=== PATIENT | female | born 1985 | race American Indian/Alaskan Native ===

== ENCOUNTER 2016-11-19 05:22 | Emergency (ER) | payer MEDICAID ==
--- NOTE | 2016-11-19 06:30 | C.PDOC ---
History Of Present Illness 31 year old female who presents to the ER with a complaint of exacerbation of her chronic back pain for the past 3 days. Denies recent injury/trauma, weakness , numbness, dysuria, incontinence, or hematuria. Pain is worse with movements Time Seen by Provider: 11/19/16 05:47 Chief Complaint (Nursing): Back Pain History Per: Patient History/Exam Limitations: no limitations Onset/Duration Of Symptoms: Days Current Symptoms Are (Timing): Still Present Quality Of Discomfort: Unable To Describe Previous Symptoms: Back Pain, Chronic Pain Associated Symptoms: None Recent travel outside of the [place]: No Past Medical History Reviewed: Historical Data, Nursing Documentation, Vital Signs Vital Signs: Last Vital Signs Temp 98.0 F 11/19/16 05:29 Pulse 86 11/19/16 05:29 Resp 16 11/19/16 05:29 BP 103/68 11/19/16 05:29 Pulse Ox 99 11/19/16 06:32 - Medical History PMH: No Chronic Diseases Surgical History: No Surg Hx Family History: States: Unknown Family Hx - Social History Hx Alcohol Use: No Hx Substance Use: No (DENIED) - Immunization History Hx Tetanus Toxoid Vaccination: No Hx Influenza Vaccination: No Hx Pneumococcal Vaccination: No Review Of Systems Genitourinary: Negative for: Dysuria, Incontinence, Hematuria Musculoskeletal: Positive for: Back Pain Neurological: Negative for: Weakness, Numbness Physical Exam - Physical Exam Appears: Non-toxic Skin: Normal Color, Warm, Dry Head: Atraumatic, Normacephalic Gastrointestinal/Abdominal: Soft, No Tenderness Back: No Vertebral Tenderness, Paraspinal Tenderness (Lumbar) Extremity: Normal ROM (x4), No Tenderness, No Deformity Neurological/Psych: Oriented x3, Normal Speech, Normal Cognition, Normal Motor, Normal Sensation Gait: Steady ED Course And Treatment O2 Sat by Pulse Oximetry: 99 (Room air) Pulse Ox Interpretation: Normal Progress Note: Valium and toradol administered. Patient is resting comfortably, is no longer having back pain, no fever, no bony tenderness, no numbness, no weakness, or abdominal pain. Patient is ambulatory in the emergency department with no signs of discomfort. Patient was advised to follow up with their PMD in 1-2 days. Disposition Counseled Patient/Family Regarding: Diagnosis, Need For Followup, Rx Given - Disposition Referrals: [facility] [Outside] Disposition: HOME/ ROUTINE Disposition Time: 06:38 Condition: STABLE Additional Instructions: Take meds as prescribed Follow up with your doctor or in clinic Return to ER if worse Prescriptions: Cyclobenzaprine [Cyclobenzaprine HCl] 10 mg PO HS #10 tab Ibuprofen [Motrin] 600 mg PO Q6H #30 tab Instructions: Back Pain (ED) Forms: [facility] (Kazakh) - Clinical Impression Clinical Impression: Low back pain - Scribe Statement The provider has reviewed the documentation as recorded by the Scribernesto Aparicio All medical record entries made by the Rosanaibernesto were at my direction and personally dictated by me. I have reviewed the chart and agree that the record accurately reflects my personal performance of the history, physical exam, medical decision making, and the department course for this patient. I have also personally directed, reviewed, and agree with the discharge instructions and disposition.
[2016-11-19 06:53] VITALS: BP 122/79; PULSE 78; RESP 18; TEMP 97.6; O2SAT 100
== END 2016-11-19 06:56 | disposition home or self-care (01) ==
LOC: C.ER 05:22
DX: M54.5 Low back pain (principal)
CPT/HCPCS: 96372; 99284; J1885

== ENCOUNTER 2017-01-17 12:06 | Emergency (ER) | payer MEDICAID ==
[2017-01-17 12:15] VITALS: BMI 34.0
[2017-01-17 13:28] LABS: RBC URINE 2 /hpf (0-3); URINE BACTERIA RARE (<OCC); URINE BILIRUBIN NEGATIVE (NEGATIVE); URINE BLOOD NEGATIVE (NEGATIVE); URINE COLOR Yellow (YELLOW); URINE GLUCOSE (UA) NORMAL (Normal); URINE KETONE NEGATIVE (NEGATIVE); URINE LEUKOCYTE ESTERASE NEG Leu/uL (Negative); URINE PROTEIN NEGATIVE (NEGATIVE); URINE UROBILINOGEN NORMAL mg/dL (0.2-1.0); WBC URINE 2 /hpf (0-5)
--- NOTE | 2017-01-17 13:49 | RAD ---
PROCEDURE: Radiographs of the Lumbar Spine. HISTORY: back pain COMPARISON: None available. FINDINGS: BONES: Alignment appears satisfactory. No listhesis. No acute displaced fracture identified. DISC SPACES: Unremarkable. OTHER FINDINGS: None. IMPRESSION: No acute displaced fracture or subluxation identified.
[2017-01-17] MEDS ORDERED: Lidocaine 5% Patch TD STA (14:02)
[2017-01-17] MEDS ORDERED: Lidocaine 5% Patch TD ONE (14:23)
--- NOTE | 2017-01-17 14:42 | C.PDOC ---
History Of Present Illness 31 year old female presents to the ER with a complaint of lower back pain for the past 2 months that has worsened over the last few days. Patient states she has been lifting heavy objects at work and has been doing a lot of bending down. Denies recent trauma/injury, weakness, numbness, dysuria, or hematuria. Chief Complaint (Nursing): Back Pain History Per: Patient History/Exam Limitations: no limitations Onset/Duration Of Symptoms: Days Current Symptoms Are (Timing): Still Present Quality Of Discomfort: Unable To Describe Previous Symptoms: None Associated Symptoms: None Recent travel outside of the [place]: No Past Medical History Reviewed: Historical Data, Nursing Documentation, Vital Signs Vital Signs: Last Vital Signs Temp 97.8 F 01/17/17 14:53 Pulse 55 L 01/17/17 14:53 Resp 16 01/17/17 14:53 BP 107/77 01/17/17 14:53 Pulse Ox 99 01/17/17 14:53 - Medical History PMH: No Chronic Diseases Surgical History: No Surg Hx Family History: States: Unknown Family Hx - Social History Hx Alcohol Use: No Hx Substance Use: No (DENIED) - Immunization History Hx Tetanus Toxoid Vaccination: No Hx Influenza Vaccination: No Hx Pneumococcal Vaccination: No Review Of Systems Genitourinary: Negative for: Dysuria, Incontinence, Hematuria Musculoskeletal: Positive for: Back Pain Neurological: Negative for: Weakness, Numbness Physical Exam - Physical Exam Appears: Non-toxic, No Acute Distress Skin: Normal Color, Warm, Dry Head: Atraumatic, Normacephalic Back: Vertebral Tenderness (LS), Paraspinal Tenderness (LS) Extremity: Normal ROM (x4) Neurological/Psych: Oriented x3, Normal Speech, Normal Cognition, Normal Motor, Normal Sensation ED Course And Treatment O2 Sat by Pulse Oximetry: 98 (Room air) Pulse Ox Interpretation: Normal - Other Rad LS Spine x-ray X-Ray: Viewed By Me, Read By Radiologist Interpretation: PROCEDURE: Radiographs of the Lumbar Spine. HISTORY: back pain. COMPARISON: None available. FINDINGS: BONES: Alignment appears satisfactory. No listhesis. No acute displaced fracture identified. DISC SPACES : Unremarkable. OTHER FINDINGS: None. IMPRESSION: No acute displaced fracture or subluxation identified. Progress Note: LS spine x-ray ordered, no abnormalities found. Patient treated with toradol and lidoderm patch and discharged with instructions to follow up with PMD. Disposition - Disposition Disposition: HOME/ ROUTINE Disposition Time: 14:39 Condition: STABLE Additional Instructions: Follow up with PMD within 1-2 days. Return to ED if feel worse. Prescriptions: Cyclobenzaprine [Cyclobenzaprine HCl] 10 mg PO TID #15 tab Ibuprofen [Motrin Tab] 600 mg PO Q8 #30 tab traMADol/Acetaminophen [Ultracet 325 MG-37.5 MG] 1 tab PO Q6 PRN #30 tab PRN Reason: Pain Instructions: Acute Low Back Pain (ED) Forms: [facility] (Croatian), Work Excuse - Clinical Impression Clinical Impression: Low back pain - Scribe Statement The provider has reviewed the documentation as recorded by the Scribernesto Aparicio All medical record entries made by the Rosanaibernesto were at my direction and personally dictated by me. I have reviewed the chart and agree that the record accurately reflects my personal performance of the history, physical exam, medical decision making, and the department course for this patient. I have also personally directed, reviewed, and agree with the discharge instructions and disposition.
[2017-01-17 14:54] VITALS: BP 107/77; PULSE 55; RESP 16; TEMP 97.8
[2017-01-17 18:35] VITALS: O2SAT 98
== END 2017-01-17 14:54 | disposition home or self-care (01) ==
LOC: C.ER 12:06
DX: M54.5 Low back pain (principal)
CPT/HCPCS: 72100; 81001; 84703; 96372; 99284; J1885

== ENCOUNTER 2017-05-06 23:02 | Emergency (ER) | payer MEDICAID ==
[2017-05-06 23:02] VITALS: BMI 34.0
[2017-05-06 23:13] VITALS: BP 133/83; O2SAT 100
--- NOTE | 2017-05-06 23:23 | C.PDOC ---
History Of Present Illness 31 y/o female c/o right elbow pain; pt was standing on nightstand to hang something on ceiling, fell backwards and banged right elbow on night stand as she fell. , occurred 6 pm. pt did not hit head. last tdap unk. Time Seen by Provider: 05/06/17 23:16 Chief Complaint (Nursing): Upper Extremity Problem/Injury Past Medical History Vital Signs: Last Vital Signs Temp 97.9 F 05/06/17 23:08 Pulse 68 05/06/17 23:08 Resp 20 05/06/17 23:08 BP 133/83 05/06/17 23:08 Pulse Ox 100 05/06/17 23:23 Family History: States: Unknown Family Hx - Social History Hx Alcohol Use: Yes Hx Substance Use: No (DENIED) - Immunization History Hx Tetanus Toxoid Vaccination: No Hx Influenza Vaccination: No Hx Pneumococcal Vaccination: No ED Course And Treatment O2 Sat by Pulse Oximetry: 100 Medical Decision Making Medical Decision Making: xray of elbow and forearm reviewed by me, no fx noted. pt withf/u ortho contusion to elbow and forearms with abrasions. d/c home with sling, nsaids. Disposition Counseled Patient/Family Regarding: Studies Performed, Diagnosis, Need For Followup, Rx Given - Disposition Referrals: Rafat Kumar MD [Primary Care Provider] - Master Fowler III, MD [Staff Provider] - Disposition: HOME/ ROUTINE Disposition Time: 01:03 Condition: GOOD Additional Instructions: Takei buprofen for pain. Cold compresses three times a day. Bacitracin to scrapes on elbow and arm. Wear sling for comfort. Follow up with orthopedist. Forms: [facility] (Slovak), General Discharge Instructions - Clinical Impression Clinical Impression: Contusion of elbow, right, Abrasion of elbow, right
[2017-05-06] MEDS ORDERED: Tdap Vaccine 0.5 ml Vial (10-64 yrs) IM ONE ×2 (23:28→23:35)
[2017-05-06] MEDS ORDERED: Bacitracin 500 Units/gm Oint Foilpak UD TOP ONE (23:28)
[2017-05-06] MEDS ORDERED: Bacitracin 500 Units/gm Oint Foilpak UD ONE (23:30)
[2017-05-07 01:34] VITALS: PULSE 75; RESP 16; TEMP 98
--- NOTE | 2017-05-07 08:45 | RAD ---
PROCEDURE: Radiographs of the right elbow. HISTORY: posterior olecranon tender s/p fall COMPARISON: No prior. FINDINGS: BONES: Normal. No fracture. JOINTS: Normal. No osteoarthritis. SOFT TISSUES: Normal. JOINT EFFUSION: None. OTHER FINDINGS: None. IMPRESSION: Unremarkable radiographs of the right elbow.
--- NOTE | 2017-05-07 08:46 | RAD ---
PROCEDURE: Radiographs of the Right Forearm HISTORY: mid forearm pain s/p fall COMPARISON: None available. TECHNIQUE: Frontal and lateral views obtained. FINDINGS: BONES: No fracture or destructive lesion. JOINT SPACES: Unremarkable. OTHER FINDINGS: None. IMPRESSION: Unremarkable radiographs of the right forearm.
== END 2017-05-07 01:33 | disposition home or self-care (01) ==
LOC: C.ER 23:02 → SUPCPDRO 23:02 → C.ER 05-07 01:33
DX: S50.01XA Contusion of right elbow, initial encounter (principal); S50.311A Abrasion of right elbow, initial encounter; W17.89XA Other fall from one level to another, initial encounter

== ENCOUNTER 2017-07-26 14:01 | Emergency (ER) | payer MEDICAID ==
[2017-07-26 14:02] VITALS: BMI 34.0
[2017-07-26 14:22] VITALS: BP 111/77; PULSE 76; RESP 16; TEMP 98.2; O2SAT 100
--- NOTE | 2017-07-26 14:56 | C.PDOC ---
History Of Present Illness 31 yo female come in for evaluation of Right 1st toe pain developed since yesterday after heavy box fell down on toe at work. Pt admits, mild pain over injured toe. Otherwise, denies obvious deformity, weakness, sensory or vascular deficits to Right foot. Ambulate to Ed for evaluation, not in any apparent distress. Time Seen by Provider: 07/26/17 14:22 Chief Complaint (Nursing): Lower Extremity Problem/Injury History Per: Patient Past Medical History Reviewed: Historical Data, Nursing Documentation, Vital Signs Vital Signs: Last Vital Signs Temp 98.2 F 07/26/17 14:17 Pulse 76 07/26/17 14:17 Resp 16 07/26/17 14:17 BP 111/77 07/26/17 14:17 Pulse Ox 100 07/26/17 14:17 - Medical History PMH: No Chronic Diseases Family History: States: Unknown Family Hx - Social History Hx Alcohol Use: Yes Hx Substance Use: No (DENIED) - Immunization History Hx Tetanus Toxoid Vaccination: No Hx Influenza Vaccination: No Hx Pneumococcal Vaccination: No Review Of Systems Except As Marked, All Systems Reviewed And Found Negative. Constitutional: Negative for: Fever, Chills Musculoskeletal: Positive for: Foot Pain Skin: Negative for: Lesions, Bruising Neurological: Negative for: Weakness, Numbness Physical Exam - Physical Exam Appears: Well, Non-toxic, No Acute Distress Skin: Normal Color, Warm, No Rash, No Ecchymosis Extremity: Normal ROM (Right foot, no neurovascular deficits), Tenderness (mild over Right 1st MTPJ, no deformity, no skin changes.), Capillary Refill (less than 2sec to Right foot), No Deformity, No Swelling Neurological/Psych: Oriented x3, Normal Speech, Normal Motor, Normal Sensation, Normal Reflexes ED Course And Treatment O2 Sat by Pulse Oximetry: 100 - Other Rad Right 1st toe X-Ray: Interpreted by Me Interpretation: (-) acute fx or dislocation Progress Note: On re-eval, pt is afebrile, hemodynamicaly stable. Non-toxic. Right foot: exam c/w mild tenderness over 1st MTPJ, no deformity, no skin hcanges. FAROM, no neurovascular deficits. Imaging review (-) acute fx. Shiva tape applied to Right 1st/2nd toes. Pt advised on course of ds. ref. to f/u with Podiatry in 2 days for re-eavl. return if any new changes. Disposition Counseled Patient/Family Regarding: Studies Performed, Diagnosis, Need For Followup, Rx Given - Disposition Referrals: [facility] [Outside] Disposition: HOME/ ROUTINE Disposition Time: 14:54 Condition: STABLE Additional Instructions: Shiva tape for 1 week Ibuprofen daily Follow up with Podiatry Clinic on Sunday form noon-3 PM for further evaluation and treatment as need Prescriptions: Ibuprofen [Ibu] 400 mg PO TID #20 tablet Instructions: Toe Injury Forms: [facility] (Kyrgyz), Work Excuse - Clinical Impression Clinical Impression: Toe contusion
--- NOTE | 2017-07-26 18:59 | RAD ---
PROCEDURE: Radiographs of the right great toe. TECHNIQUE:: AP radiograph of the right foot, with oblique and lateral view of the right great toe. COMPARISON: Right great toe radiographs 08/21/2015. FINDINGS: BONES: A punctate area of calcification is seen in the medial to the proximal portion of the proximal phalanx right great toe felt to represent heterotopic calcification although a tiny chip or avulsion fracture only 1 mm size is not excluded. Unchanged compared to right great toe radiographs 08/21/2015. No major fracture of the great toe is appreciated and there is no subluxation or dislocation either. No destructive bony changes are identified. AP view of the right foot is unremarkable. JOINTS: As above. SOFT TISSUES: As above. OTHER FINDINGS: None. IMPRESSION: No prominent fracture. No subluxation or dislocation. A punctate calcific density is chronic medial to the proximal portion proximal phalanx right great toe representing either heterotopic calcification or prior chip/avulsion fracture.
== END 2017-07-26 15:30 | disposition home or self-care (01) ==
LOC: C.ER 14:01
DX: S90.111A Contusion of right great toe without damage to nail, initial encounter (principal); W20.8XXA Other cause of strike by thrown, projected or falling object, initial encounter

== ENCOUNTER 2017-09-17 20:34 | Inpatient (IN) | payer MEDICAID ==
[2017-09-17 20:34] VITALS: BMI 34.0
[2017-09-17] MEDS ORDERED: Sodium Chloride 0.9% 1,000 ML IV ONE ×2 (21:01→23:56)
--- NOTE | 2017-09-17 21:01 | C.PDOC ---
History Of Present Illness 31 y/o female presents to ED for complaints of abdominal pain associated with nausea, vomiting, and diffused bodyaches. Patient reports she is not tolerating anything PO and states "I think I have the flu." Denies diarrhea, fever, or chills. Patient is actively vomiting in ED. Time Seen by Provider: 09/17/17 21:01 Chief Complaint (Nursing): Abdominal Pain History Per: Patient History/Exam Limitations: no limitations Onset/Duration Of Symptoms: Hrs Current Symptoms Are (Timing): Still Present Severity: Moderate Pain Scale Rating Of: 4 Location Of Pain/Discomfort: Diffuse Radiation Of Pain To:: None Associated Symptoms: Nausea, Vomiting. denies: Fever, Chills, Diarrhea Exacerbating Factors: None Alleviating Factors: None Last Bowel Movement: Today Recent travel outside of the [place]: No Additional History Per: Patient Abnormal Vaginal Bleeding: No Past Medical History Reviewed: Historical Data, Nursing Documentation, Vital Signs Vital Signs: Last Vital Signs Temp 98.6 F 09/18/17 00:31 Pulse 68 09/18/17 00:31 Resp 16 09/18/17 00:31 BP 97/61 L 09/18/17 00:31 Pulse Ox 96 09/18/17 00:31 - Medical History PMH: No Chronic Diseases Family History: States: Unknown Family Hx - Social History Hx Alcohol Use: Yes Hx Substance Use: No (DENIED) - Immunization History Hx Tetanus Toxoid Vaccination: No Hx Influenza Vaccination: No Hx Pneumococcal Vaccination: No Review Of Systems Constitutional: Positive for: Fever, Chills, Malaise Eyes: Negative for: Redness ENT: Negative for: Throat Pain Cardiovascular: Negative for: Chest Pain Respiratory: Negative for: Shortness of Breath Gastrointestinal: Positive for: Nausea, Vomiting, Abdominal Pain. Negative for : Diarrhea Genitourinary: Negative for: Dysuria Musculoskeletal: Positive for: Other (Diffuse bodyaches) Skin: Negative for: Rash Neurological: Negative for: Weakness, Numbness Psych: Negative for: Anxiety Physical Exam - Physical Exam Appears: Non-toxic, Other (Actively vomiting in ER) Skin: Warm, Dry Head: Normacephalic Eye(s): bilateral: Normal Inspection Oral Mucosa: Moist Neck: Trachea Midline, Supple Chest: Symmetrical Cardiovascular: Rhythm Regular Respiratory: No Rales, No Rhonchi, No Wheezing Gastrointestinal/Abdominal: Soft, No Tenderness, No Distention Back: No CVA Tenderness Extremity: Normal ROM, No Deformity Extremity: Bilateral: Atraumatic, Normal Color And Temperature, Normal ROM Pulses: Left Dorsalis Pedis: Normal, Right Dorsalis Pedis: Normal Neurological/Psych: Oriented x3, Normal Speech Gait: Steady ED Course And Treatment - Laboratory Results Result Diagrams: 09/17/17 21:49 09/17/17 21:49 O2 Sat by Pulse Oximetry: 97 (RA) Pulse Ox Interpretation: Normal Progress Note: Administered Zofran and IV fluids. Ordered bloodwork and urinalysis. Disposition Discussed With : Rafat Kumar Comment: acceptd the pt on his service and took over the care at 12:50 AM Doctor Will See Patient In The: Hospital Counseled Patient/Family Regarding: Studies Performed, Diagnosis - Disposition Disposition: HOSPITALIZED Disposition Time: 21:01 Condition: FAIR Forms: [facility] (Pashto) - POA Present On Arrival: Poor Glycemic Control - Clinical Impression Clinical Impression: Nausea, Vomiting, Acute pyelonephritis - Scribe Statement The provider has reviewed the documentation as recorded by the Scribernesto Roth All medical record entries made by the Rosanaibernesto were at my direction and personally dictated by me. I have reviewed the chart and agree that the record accurately reflects my personal performance of the history, physical exam, medical decision making, and the department course for this patient. I have also personally directed, reviewed, and agree with the discharge instructions and disposition. Decision To Admit - Pt Status Changed To: Hospital Disposition Of: Inpatient - Admit Certification Admit to Inpatient:: After my assessment, the patient will require hospitalization for at least two midnights. This is because of the severity of symptoms shown, intensity of services needed, and/or the medical risk in this patient being treated as an outpatient. - InPatient: Physician Admission Certification:: After my assessment, the patient will require hospitalization for at least two midnights. This is because of the severity of symptoms shown, intensity of services needed, and/or the medical risk in this patient being treated as an outpatient. - . Bed Request Type: Regular Admitting Physician: Rafat Kumar Patient Diagnosis: Nausea, Vomiting, Acute pyelonephritis
[2017-09-17 21:36] LABS: SQUAMOUS EPITHIAL 12 /hpf (0-5); URINE BACTERIA OCC (<OCC); URINE BILIRUBIN NEGATIVE (NEGATIVE); URINE BLOOD 2+ (NEGATIVE); URINE CLARITY Hazy (Clear); URINE COLOR Amber (YELLOW); URINE GLUCOSE (UA) NORMAL (Normal); URINE LEUKOCYTE ESTERASE 2+ Leu/uL (Negative); URINE PROTEIN 2+ mg/dL (NEGATIVE)
[2017-09-17] MEDS ORDERED: Piperacillin/Tazobact 3.375 gm 100 ML IVPB STA (21:50)
[2017-09-17 22:01] LABS: BASO % 0.2 % (0.0-2.0); HEMOGLOBIN 12.5 g/dL (11.0-16.0); LYMPH # 1.2 K/uL (1.0-4.3); LYMPH % 6.4 % (20.0-40.0); MEAN CELL VOLUME 81.2 fL (81.0-99.0); MEAN CORPUSCULAR HEMOGLOBIN 26.7 pg (27.0-31.0); MEAN CORPUSCULAR HGB CONC 32.8 g/dL (33.0-37.0); MEAN PLATELET VOLUME 9.2 fL (7.2-11.7); MONO # 2.2 K/uL (0.0-0.8); MONO % 11.9 % (0.0-10.0); NEUT # 15.3 K/uL (1.8-7.0); NEUT % 81.5 % (50.0-75.0); NRBC % 0.1 % (0.0-2.0); PLATELET COUNT 249 K/uL (130-400); RBC 4.67 Mil/uL (3.80-5.20); RED CELL DISTRIBUTION WIDTH 13.9 % (11.5-14.5); WHITE BLOOD COUNT 18.8 K/uL (4.8-10.8)
[2017-09-17 22:02] LABS: INR 1.5
[2017-09-17 22:03] LABS: PROTHROMBIN TIME 16.2 SECONDS (9.7-12.2)
[2017-09-17 22:07] LABS: ALBUMIN 4.1 g/dL (3.5-5.0); ALT/SGPT 22 U/L (9-52); AST/SGOT 19 U/L (14-36); BLOOD UREA NITROGEN 8 mg/dL (7-17); CALCIUM 9.2 mg/dl (8.6-10.4); GFR AFRICAN-AMERICAN > 60; GFR NON-AFRICAN AMERICAN 53; LIPASE 22 U/L (23-300)
[2017-09-17] MEDS ORDERED: Piperacillin/Tazobact 3.375 gm 100 ML IVPB ONE (22:09)
[2017-09-17 22:21] LABS: BANDS 1 % (0-2); LYMPHOCYTE 8 % (20-40); MONOCYTE 9 % (0-10); NEUTROPHIL 82 % (50-75); PLATELET ESTIMATE NORMAL (NORMAL); TOTAL CELLS COUNTED 100
[2017-09-18] MEDS ORDERED: Sodium Chloride 0.9% 1,000 ML ONE (00:28)
[2017-09-18] MEDS ORDERED: Sodium Chloride 0.9% 1,000 ML IV ONE (00:53)
--- NOTE | 2017-09-18 07:40 | CP.PCM.PN ---
Subjective - Date & Time of Evaluation Date of Evaluation: 09/18/17 Time of Evaluation: 07:37 - Subjective Subjective: PGY-[address] Kumar's Service Patient seen and examined at bedside. Per nursing no acute events occurred overnight. Patient does state having multiple episodes of non-bloody, non- bilious emesis overnight. Patient reports some bilateral flank pain as well today. Patient denies any chest pain, shortness of breath, dizziness, syncopal episodes, or any other complaints. Objective - Vital Signs/Intake and Output Vital Signs (last 24 hours): Temp Pulse Resp BP Pulse Ox 98.2 F 70 16 108/61 96 09/18/17 01:34 09/18/17 01:34 09/18/17 01:34 09/18/17 01:34 09/18/17 01:34 - Medications Medications: Current Medications Pneumococcal Polyvalent Vaccine (Pneumovax 23 Vaccine) 0.5 ml IM .ONCE ONE Stop: 09/20/17 10:01 - Labs Labs: 09/17/17 21:49 09/17/17 21:49 PT 16.2 SECONDS (9.7-12.2) H 09/17/17 21:49 INR 1.5 09/17/17 21:49 APTT 31 SECONDS (21-34) 09/17/17 21:49 - Head Exam Head Exam: ATRAUMATIC, NORMAL INSPECTION, NORMOCEPHALIC - Eye Exam Eye Exam: EOMI, Normal appearance - ENT Exam ENT Exam: Mucous Membranes Moist, Normal Exam - Respiratory Exam Respiratory Exam: Clear to Ausculation Bilateral, NORMAL BREATHING PATTERN - Cardiovascular Exam Cardiovascular Exam: REGULAR RHYTHM, +S1, +S2 - GI/Abdominal Exam GI & Abdominal Exam: Tenderness, Normal Bowel Sounds - Extremities Exam Extremities Exam: Full ROM. absent: Pedal Edema - Back Exam Back Exam: NORMAL INSPECTION. absent: paraspinal tenderness - Neurological Exam Neurological Exam: Alert, Awake, CN II-XII Intact, Oriented x3 - Psychiatric Exam Psychiatric exam: Normal Affect, Normal Mood Assessment and Plan - Assessment and Plan (Free Text) Assessment: 31 year old female with no past medical history admitted for pyelonephritis. Plan: 1. Acute pyelonephritis -Given dose of Zosyn in the E.D. -IV fluids -Tylenol for Temperature >100.4 -Urine culture. Will f/u with results. PPX -Protonix
[2017-09-18] MEDS: Piperacill/Tazo 3.375gm in Dex 3.375 GM/50 ML BAG IVPB SCH ×3 (08:47→19:50)
[2017-09-18] MEDS: Sodium Chloride 0.9% 1,000 ML IV SCH ×2 (08:49→19:00)
[2017-09-18 14:10] LABS: BASO % 0.2 % (0.0-2.0); HEMOGLOBIN 11.2 g/dL (11.0-16.0); LYMPH # 1.3 K/uL (1.0-4.3); LYMPH % 7.7 % (20.0-40.0); MEAN CELL VOLUME 81.2 fL (81.0-99.0); MEAN CORPUSCULAR HEMOGLOBIN 27.2 pg (27.0-31.0); MEAN CORPUSCULAR HGB CONC 33.5 g/dL (33.0-37.0); MONO # 1.6 K/uL (0.0-0.8); MONO % 9.3 % (0.0-10.0); NEUT # 14.5 K/uL (1.8-7.0); NEUT % 82.8 % (50.0-75.0); PLATELET COUNT 209 K/uL (130-400); RED CELL DISTRIBUTION WIDTH 14.2 % (11.5-14.5); WHITE BLOOD COUNT 17.5 K/uL (4.8-10.8)
[2017-09-18 14:22] LABS: ALBUMIN 3.5 g/dL (3.5-5.0); ALT/SGPT 29 U/L (9-52); AST/SGOT 25 U/L (14-36); BLOOD UREA NITROGEN 9 mg/dL (7-17); CALCIUM 8.2 mg/dl (8.6-10.4); GFR AFRICAN-AMERICAN > 60; GFR NON-AFRICAN AMERICAN 53
[2017-09-18 14:50] LABS: BANDS 1 % (0-2); LYMPHOCYTE 3 % (20-40); MONOCYTE 8 % (0-10); NEUTROPHIL 88 % (50-75); PLATELET ESTIMATE NORMAL (NORMAL); TOTAL CELLS COUNTED 100
--- NOTE | 2017-09-18 14:53 | CP.PCM.CON ---
History of Present Illness - History of Present Illness History of Present Illness: GI Fellow PGY4, Consult note. Consult for vomiting. Jerald Espino is a pleasant 31yo AAF with no previous PMHx presenting with vomiting, fever, and abdominal pain. The vomiting started several days ago for no apparent reason. She denies sick contacts with similar symptoms, her daughter has been healthy. She denies eating abnormal food. She has multiple episodes, non-blood, yellow, frothy emesis per day. However, she recently had episode of black, coffee ground emesis yesterday. She developed a fever 2 days ago. She admits lower abdominopelvic pain that started 2 days ago as well. Her LMP was September 02 and has been regular. She denies vaginal discharge, urinary urgency/frequency, dysuria. She admits to recent episode of diarrhea today and she had previously been constipated. PMHx - She has had low back pain since 2011, epidural. PSHx - Epidural 2011, . FmHx - Mother had HTN, DM SocHx - Lives with mother at home, 1 daughter, sexually active with partner. Alcohol occasionally, smoking occasionally. Past Patient History - Infectious Disease Hx of Infectious Diseases: None - Past Medical History & Family History Past Medical History?: Yes - Past Social History Smoking Status: Light Smoker < 10 Cigarettes Daily - CARDIAC Hx Cardiac Disorders: No - PULMONARY Hx Respiratory Disorders: No - NEUROLOGICAL Hx Neurological Disorder: No - HEENT Hx HEENT Problems: No - RENAL Hx Chronic Kidney Disease: No - ENDOCRINE/METABOLIC Hx Endocrine Disorders: No - HEMATOLOGICAL/ONCOLOGICAL Hx Blood Disorders: No - INTEGUMENTARY Hx Dermatological Problems: No - MUSCULOSKELETAL/RHEUMATOLOGICAL Hx Falls: No - GASTROINTESTINAL Hx Gastrointestinal Disorders: No - GENITOURINARY/GYNECOLOGICAL Hx Genitourinary Disorders: No - PSYCHIATRIC Hx Substance Use: No - SURGICAL HISTORY Hx Surgeries: Yes Hx Section: Yes - ANESTHESIA Hx Anesthesia: Yes (epidural) Hx Anesthesia Reactions: No Hx Malignant Hyperthermia: No Has any member of the family had a problem w/ anesthesia?: No Meds Allergies/Adverse Reactions: Allergies Allergy/AdvReac Type Severity Reaction Status Date / Time EGG Allergy Verified 09/17/17 20:49 - Medications Medications: Current Medications Acetaminophen (Tylenol 325mg Tab) 650 mg PO Q6 PRN PRN Reason: Fever >100.4 F Sodium Chloride (Sodium Chloride 0.9%) 1,000 mls @ 100 mls/hr IV .Q10H [facility] Last Admin: 09/18/17 08:49 Dose: 100 mls/hr Piperacillin Sod/Tazobactam Sod (Zosyn 3.375 Gm Iv Premix) 3.375 gm in 50 mls @ 100 mls/hr IVPB Q6H [facility] PRN Reason: Protocol Last Admin: 09/18/17 14:11 Dose: 100 mls/hr Ceftriaxone Sodium 1 gm/ (Sodium Chloride) 100 mls @ 100 mls/hr IVPB DAILY [facility] PRN Reason: Protocol Last Admin: 09/18/17 11:21 Dose: 100 mls/hr Ondansetron HCl (Zofran Inj) 4 mg IVP Q6 PRN PRN Reason: Nausea/Vomiting Last Admin: 09/18/17 11:21 Dose: 4 mg Pantoprazole Sodium (Protonix Inj) 40 mg IVP DAILY [facility] Last Admin: 09/18/17 13:20 Dose: 40 mg Pneumococcal Polyvalent Vaccine (Pneumovax 23 Vaccine) 0.5 ml IM .ONCE ONE Stop: 09/20/17 10:01 Physical Exam - Constitutional Appears: Non-toxic, No Acute Distress - Head Exam Head Exam: ATRAUMATIC, NORMAL INSPECTION, NORMOCEPHALIC - Eye Exam Eye Exam: EOMI, Normal appearance, PERRL - ENT Exam ENT Exam: Mucous Membranes Moist, Normal Exam - Respiratory Exam Respiratory Exam: Clear to Auscultation Bilateral, NORMAL BREATHING PATTERN. absent: Wheezes - Cardiovascular Exam Cardiovascular Exam: REGULAR RHYTHM, +S1, +S2 - GI/Abdominal Exam GI & Abdominal Exam: Normal Bowel Sounds, Soft. absent: Distended Additional comments: Mid-pelvic pain along scar. No peritoneal signs. No skin break down. Pelvic area was malodorous. No obvious inguinal lymphadopathy. - Extremities Exam Extremities exam: Positive for: normal inspection - Neurological Exam Neurological exam: Alert, CN II-XII Intact, Oriented x3 - Psychiatric Exam Psychiatric exam: Normal Affect, Normal Mood - Skin Skin Exam: Dry, Intact, Normal Color Results - Vital Signs Recent Vital Signs: Last Vital Signs Temp 99.5 F 09/18/17 08:15 Pulse 71 09/18/17 08:15 Resp 20 09/18/17 08:15 BP 102/65 09/18/17 08:15 Pulse Ox 100 09/18/17 08:15 - Labs Result Diagrams: 09/18/17 14:01 09/18/17 14:01 Labs: Laboratory Results - last 24 hr 09/17/17 09/17/17 09/17/17 21:07 21:07 21:49 WBC 18.8 H D RBC 4.67 Hgb 12.5 Hct 37.9 MCV 81.2 D MCH 26.7 L MCHC 32.8 L RDW 13.9 Plt Count 249 MPV 9.2 Neut % (Auto) 81.5 H Lymph % (Auto) 6.4 L [place] % (Auto) 11.9 H Eos % (Auto) 0.0 Baso % (Auto) 0.2 Neut # (Auto) 15.3 H Lymph # (Auto) 1.2 [place] # (Auto) 2.2 H Eos # (Auto) 0.0 Baso # (Auto) 0.0 Neutrophils % (Manual) 82 H Band Neutrophils % 1 Lymphocytes % (Manual) 8 L Monocytes % (Manual) 9 Platelet Estimate Normal RBC Morphology Normal PT INR APTT Sodium Potassium Chloride Carbon Dioxide Anion Gap BUN Creatinine Est GFR ( Amer) Est GFR (Non-Af Amer) Random Glucose Calcium Total Bilirubin AST ALT Alkaline Phosphatase Total Protein Albumin Globulin Albumin/Globulin Ratio Lipase Urine Color Jennifer Urine Clarity Hazy Urine pH 7.0 Ur Specific [place] 1.014 Urine Protein 2+ H Urine Glucose (UA) Normal Urine Ketones Negative Urine Blood 2+ H Urine Nitrate Negative Urine Bilirubin Negative Urine Urobilinogen 4.0 H Ur Leukocyte Esterase 2+ H Urine WBC (Auto) 78 H Urine RBC (Auto) 33 H Ur Squamous Epith Cells 12 H Urine Bacteria Occ H Urine HCG, Qual Negative 09/17/17 09/17/17 09/18/17 21:49 21:49 14:01 WBC RBC Hgb Hct MCV MCH MCHC RDW Plt Count MPV Neut % (Auto) Lymph % (Auto) [place] % (Auto) Eos % (Auto) Baso % (Auto) Neut # (Auto) Lymph # (Auto) [place] # (Auto) Eos # (Auto) Baso # (Auto) Neutrophils % (Manual) Band Neutrophils % Lymphocytes % (Manual) Monocytes % (Manual) Platelet Estimate RBC Morphology PT 16.2 H INR 1.5 APTT 31 Sodium 140 141 Potassium 3.7 3.9 Chloride 102 106 Carbon Dioxide 23 23 Anion Gap 18 15 BUN 8 9 Creatinine 1.2 1.2 Est GFR ( Amer) > 60 > 60 Est GFR (Non-Af Amer) 53 53 Random Glucose 129 H 148 H Calcium 9.2 8.2 L Total Bilirubin 0.7 0.7 AST 19 25 ALT 22 29 Alkaline Phosphatase 68 66 Total Protein 8.3 7.2 Albumin 4.1 3.5 Globulin 4.2 H 3.7 Albumin/Globulin Ratio 1.0 1.0 Lipase 22 L Urine Color Urine Clarity Urine pH Ur Specific [place] Urine Protein Urine Glucose (UA) Urine Ketones Urine Blood Urine Nitrate Urine Bilirubin Urine Urobilinogen Ur Leukocyte Esterase Urine WBC (Auto) Urine RBC (Auto) Ur Squamous Epith Cells Urine Bacteria Urine HCG, Qual 09/18/17 14:01 WBC 17.5 H RBC 4.10 Hgb 11.2 Hct 33.3 L MCV 81.2 MCH 27.2 MCHC 33.5 RDW 14.2 Plt Count 209 MPV 9.0 Neut % (Auto) 82.8 H Lymph % (Auto) 7.7 L [place] % (Auto) 9.3 Eos % (Auto) 0.0 Baso % (Auto) 0.2 Neut # (Auto) 14.5 H Lymph # (Auto) 1.3 [place] # (Auto) 1.6 H Eos # (Auto) 0.0 Baso # (Auto) 0.0 Neutrophils % (Manual) Band Neutrophils % Lymphocytes % (Manual) Monocytes % (Manual) Platelet Estimate RBC Morphology PT INR APTT Sodium Potassium Chloride Carbon Dioxide Anion Gap BUN Creatinine Est GFR ( Amer) Est GFR (Non-Af Amer) Random Glucose Calcium Total Bilirubin AST ALT Alkaline Phosphatase Total Protein Albumin Globulin Albumin/Globulin Ratio Lipase Urine Color Urine Clarity Urine pH Ur Specific [place] Urine Protein Urine Glucose (UA) Urine Ketones Urine Blood Urine Nitrate Urine Bilirubin Urine Urobilinogen Ur Leukocyte Esterase Urine WBC (Auto) Urine RBC (Auto) Ur Squamous Epith Cells Urine Bacteria Urine HCG, Qual Assessment & Plan - Assessment and Plan (Free Text) Assessment: 31F previously healthy presenting with intractable vomiting, fever, leukocytosis and pelvic pain concerning for genitourinary infection. #Intractable vomiting #Coffee ground emesis #Sepsis - DDx includes PID, cervicitis, UTI/pyelo, appendicitis, diverticulitis. #Pelvic pain #Elevated INR Plan: -Continue supportive care, anti-emetics -NPO -Continue empiric antibiotics for likely urogenital infection -Montior cultures -Pelvic infection/inflammation is likely cause of acute changes -CT abd/pelv with IV and Oral contrast to better identify non-focal area of inflammation/pain i.e. r/o unusual presentation of appendicitis, diverticulitis. -G/C test -Consider TVUS, MANAGER STYLIST consult per primary -EGD planned for tomorrow -Further recommendations pending course. - Date & Time Date: 09/18/17 Time: 15:00
[2017-09-18] MEDS ORDERED: Iohexol 240 (50 ml) PO ONE (16:15)
[2017-09-18] MEDS ORDERED: Iodixanol 320 MG/ML 100 ML BOTTLE IV ONE (19:20)
[2017-09-19] MEDS: Piperacill/Tazo 3.375gm in Dex 3.375 GM/50 ML BAG IVPB SCH ×3 (01:45→13:43)
[2017-09-19 08:07] LABS: INR 1.4; PROTHROMBIN TIME 15.5 SECONDS (9.7-12.2)
--- NOTE | 2017-09-19 08:10 | CT ---
Date of service: 09/18/2017 PROCEDURE: CT Abdomen and Pelvis with intravenous contrast HISTORY: Abdominal pain, fever, leukocytosis COMPARISON: None. TECHNIQUE: Multiple contiguous axial images were performed through the abdomen and pelvis with the use of intravenous contrast. Subsequently, sagittal and coronal reformatted images were obtained. Radiation dose: Total exam DLP = 1093 mGy-cm. This CT exam was performed using one or more of the following dose reduction techniques: Automated exposure control, adjustment of the mA and/or kV according to patient size, and/or use of iterative reconstruction technique. FINDINGS: LOWER THORAX: Unremarkable. LIVER: Unremarkable. No gross lesion or ductal dilatation. GALLBLADDER AND BILE DUCTS: Unremarkable. PANCREAS: Unremarkable. No gross lesion or ductal dilatation. SPLEEN: Unremarkable. ADRENALS: Unremarkable. No mass. KIDNEYS AND URETERS: Striated right nephrogram concerning for pyelonephritis. VASCULATURE: Unremarkable. No aortic aneurysm. BOWEL: Unremarkable. No obstruction. No gross mural thickening. APPENDIX: Unremarkable. Normal appendix. PERITONEUM: Small amount of free fluid in the pelvis. LYMPH NODES: Unremarkable. No enlarged lymph nodes. BLADDER: Unremarkable. REPRODUCTIVE: Unremarkable. BONES: No acute fracture. OTHER FINDINGS: None. IMPRESSION: Striated right nephrogram concerning for pyelonephritis. Multifocal scattered areas of peripheral low attenuation. Post treatment interval followup would be helpful to ensure resolution and exclude underlying lesions. Clinical correlation. These findings were preliminarily reported at 9:01 p.m. on 09/18/[address] Hany Bhatti from [employer].
[2017-09-19] MEDS ORDERED: Propofol 10 mg/ml Inj (20 ML) ONE (11:30)
[2017-09-19] MEDS ORDERED: Lidocaine Hydrochloride 5 ML INJ ONE (11:30)
[2017-09-19] MEDS ORDERED: Lactated Ringer's 1,000 ML IV ONE (11:30)
--- NOTE | 2017-09-19 11:44 | CP.PCM.PN ---
Subjective - Date & Time of Evaluation Date of Evaluation: 09/19/17 Time of Evaluation: 11:42 - Subjective Subjective: Patient seen and examined at bedside. Per nursing no acute events occurred overnight. Patient denies any nausea or vomiting today. Patient denies any abdominal pain today. Patient denies any chest pain, shortness of breath, fevers , chills, or any other complaints. Objective - Vital Signs/Intake and Output Vital Signs (last 24 hours): Temp Pulse Resp BP Pulse Ox 98.7 F 60 20 119/69 97 09/19/17 11:26 09/19/17 11:26 09/19/17 11:26 09/19/17 11:26 09/19/17 11:26 Intake and Output: 09/19/17 09/19/17 06:59 18:59 Intake Total 800 Balance 800 - Medications Medications: Current Medications Acetaminophen (Tylenol 325mg Tab) 650 mg PO Q6 PRN PRN Reason: Fever >100.4 F Last Admin: 09/19/17 07:39 Dose: 650 mg Acetaminophen (Tylenol 325mg Tab) 650 mg PO Q6 PRN PRN Reason: Pain, moderate (4-7) Last Admin: 09/18/17 21:59 Dose: 650 mg Sodium Chloride (Sodium Chloride 0.9%) 1,000 mls @ 100 mls/hr IV .Q10H [facility] Last Admin: 09/18/17 19:00 Dose: Not Given Piperacillin Sod/Tazobactam Sod (Zosyn 3.375 Gm Iv Premix) 3.375 gm in 50 mls @ 100 mls/hr IVPB Q6H [facility] PRN Reason: Protocol Last Admin: 09/19/17 07:40 Dose: 100 mls/hr Ceftriaxone Sodium 1 gm/ (Sodium Chloride) 100 mls @ 100 mls/hr IVPB DAILY [facility] PRN Reason: Protocol Last Admin: 09/19/17 09:17 Dose: 100 mls/hr Ondansetron HCl (Zofran Inj) 4 mg IVP Q6 PRN PRN Reason: Nausea/Vomiting Last Admin: 09/18/17 22:03 Dose: 4 mg Pantoprazole Sodium (Protonix Inj) 40 mg IVP DAILY [facility] Last Admin: 09/19/17 09:17 Dose: 40 mg Pneumococcal Polyvalent Vaccine (Pneumovax 23 Vaccine) 0.5 ml IM .ONCE ONE Stop: 09/20/17 10:01 - Labs Labs: 09/18/17 14:01 09/18/17 14:01 PT 15.5 SECONDS (9.7-12.2) H 09/19/17 07:45 INR 1.4 09/19/17 07:45 APTT 31 SECONDS (21-34) 09/17/17 21:49 - Head Exam Head Exam: ATRAUMATIC, NORMAL INSPECTION, NORMOCEPHALIC - Eye Exam Eye Exam: EOMI, Normal appearance, PERRL Pupil Exam: NORMAL ACCOMODATION, PERRL - ENT Exam ENT Exam: Mucous Membranes Moist, Normal Oropharynx - Respiratory Exam Respiratory Exam: Clear to Ausculation Bilateral, NORMAL BREATHING PATTERN. absent: Respiratory Distress - Cardiovascular Exam Cardiovascular Exam: REGULAR RHYTHM, +S1, +S2 - GI/Abdominal Exam GI & Abdominal Exam: Soft, Normal Bowel Sounds - Back Exam Back Exam: NORMAL INSPECTION. absent: CVA tenderness (L), CVA tenderness (R), paraspinal tenderness - Neurological Exam Neurological Exam: Alert, CN II-XII Intact, Oriented x3 - Psychiatric Exam Psychiatric exam: Normal Affect, Normal Mood - Skin Skin Exam: Dry, Intact Assessment and Plan - Assessment and Plan (Free Text) Plan: 1. Acute pyelonephritis -Given dose of Zosyn in the E.D. -IV fluids -Tylenol for Temperature >100.4 -Urine culture. Will f/u with results. 2. Nausea/vomiting Infectious vs. Mechanical -GI consulted. Help appreciated -Endoscopy scheduled for today. -Full liquid diet started. PPX -Protonix Disposition: Patient expected to be discharged today. Discharge Instructions: 1.Follow up with PMD Dr. Kumar within 5 to 7 days upon discharge. 2. Follow up with Gynecology within 5 to 7 days upon discharge for possible Transvaginal Ultrasound (rec's per GI team). 3. Return to hospital for any new or worsening symptoms. Medications: 1.Ciprofloxacin 500mg PO BID X7 Days, #14, No refills.
[2017-09-19] MEDS: Sodium Chloride 0.9% 1,000 ML IV SCH (14:58)
[2017-09-19 16:45] VITALS: BP 114/76; PULSE 50; RESP 18; TEMP 98.1; O2SAT 99
[2017-09-19] MEDS ORDERED: Pneumococcal 23-Valent Vaccine IM ONE (17:30)
[2017-09-20] MEDS ORDERED: Pneumococcal 23-Valent Vaccine IM ONE (10:00)
== END 2017-09-19 18:13 | disposition home or self-care (01) | DRG 321 ==
LOC: C.ER 20:34 → C.9E 09-18 00:48 → C.3T 09-18 01:29
PROVIDERS: ADMIT Internal Medicine Pulmonary Disease; ATTEND Internal Medicine Pulmonary Disease
PROC: 0DD68ZX Extraction of Stomach, Via Natural or Artificial Opening Endoscopic, Diagnostic (ICD-10-PCS; principal; 2017-09-19 11:34)
DX: N10 Acute pyelonephritis (principal); R79.1 Abnormal coagulation profile; K29.50 Unspecified chronic gastritis without bleeding; K44.9 Diaphragmatic hernia without obstruction or gangrene; K29.80 Duodenitis without bleeding; F17.210 Nicotine dependence, cigarettes, uncomplicated

== ENCOUNTER 2017-09-23 23:09 | Inpatient (IN) | payer MEDICAID ==
[2017-09-23 23:10] VITALS: BMI 34.0
[2017-09-23] MEDS ORDERED: Sodium Chloride 0.9% 1,000 ML IV ONE (23:36)
--- NOTE | 2017-09-23 23:36 | C.PDOC ---
History Of Present Illness 31-year-old female presents to the ER with complaints of nausea, vomiting, and abdominal pain with some dysuria since yesterday. Patient was recently discharged a couple days ago for similar complaints, treated for pyelonephritis. Also had endoscopy done during stay. Patient reports decreased PO intake since discharge home. She has been taking antibiotics as prescribed. Otherwise denies any fever, chills, or diarrhea. Time Seen by Provider: 09/23/17 23:36 Chief Complaint (Nursing): Abdominal Pain History Per: Patient History/Exam Limitations: no limitations Onset/Duration Of Symptoms: Days Current Symptoms Are (Timing): Still Present Severity: Mild Pain Scale Rating Of: 4 Location Of Pain/Discomfort: Suprapubic Radiation Of Pain To:: None Quality Of Discomfort: "Pain" Associated Symptoms: Nausea, Vomiting, Urinary Symptoms Alleviating Factors: None Additional History Per: Prior Records Past Medical History Reviewed: Historical Data, Nursing Documentation, Vital Signs Vital Signs: Last Vital Signs Temp 99.0 F 09/23/17 23:28 Pulse 60 09/24/17 00:59 Resp 14 09/24/17 00:59 BP 105/49 L 09/24/17 00:59 Pulse Ox 98 09/24/17 00:59 - Medical History PMH: Denies: Chronic Kidney Disease Other PMH: Pyelonephritis Surgical History: - [facility] (09/18/17) Family History: States: Unknown Family Hx - Social History Hx Tobacco Use: Yes Hx Alcohol Use: Yes (socially) Hx Substance Use: No - Immunization History Hx Tetanus Toxoid Vaccination: No Hx Influenza Vaccination: No Hx Pneumococcal Vaccination: No Review Of Systems Constitutional: Negative for: Fever, Chills Gastrointestinal: Positive for: Nausea, Vomiting, Abdominal Pain. Negative for : Diarrhea Genitourinary: Positive for: Dysuria. Negative for: Frequency, Incontinence, Vaginal Discharge, Vaginal Bleeding Physical Exam - Physical Exam Appears: Non-toxic, No Acute Distress Skin: Warm, Dry Head: Normacephalic Eye(s): bilateral: Normal Inspection Oral Mucosa: Moist Neck: Trachea Midline, Supple Chest: Symmetrical Cardiovascular: Rhythm Regular Respiratory: No Rales, No Rhonchi, No Wheezing Gastrointestinal/Abdominal: Soft, Tenderness (diffuse abdominal tenderness, increased over suprapubic region), No Guarding, No Rebound Back: Normal Inspection Extremity: Bilateral: Atraumatic, Normal Color And Temperature Pulses: Left Dorsalis Pedis: Normal, Right Dorsalis Pedis: Normal Neurological/Psych: Oriented x3 Gait: Steady ED Course And Treatment - Laboratory Results Result Diagrams: 09/23/17 23:59 09/23/17 23:59 O2 Sat by Pulse Oximetry: 98 (RA) Pulse Ox Interpretation: Normal Progress Note: Blood work and urine sent. Patient treated with IV fluids and Zofran. 3:59 am pt still with abdominal pain. Disposition Discussed With .: Rafat Kumar Comment: accepted the pt on his service and took over the care at 3:57 AM Doctor Will See Patient In The: Hospital Counseled Patient/Family Regarding: Studies Performed, Diagnosis - Disposition Disposition: HOSPITALIZED Disposition Time: 23:36 Condition: FAIR Forms: [facility] ([place]) - Clinical Impression Clinical Impression: Acute pyelonephritis, Intractable abdominal pain, Ovarian cyst - Scribe Statement The provider has reviewed the documentation as recorded by the Scribe (Missy Suggs) Provider Attestation: All medical record entries made by the Scribe were at my direction and personally dictated by me. I have reviewed the chart and agree that the record accurately reflects my personal performance of the history, physical exam, medical decision making, and the department course for this patient. I have also personally directed, reviewed, and agree with the discharge instructions and disposition. Decision To Admit - Pt Status Changed To: Hospital Disposition Of: Inpatient - Admit Certification Admit to Inpatient:: After my assessment, the patient will require hospitalization for at least two midnights. This is because of the severity of symptoms shown, intensity of services needed, and/or the medical risk in this patient being treated as an outpatient. - InPatient: Physician Admission Certification:: After my assessment, the patient will require hospitalization for at least two midnights. This is because of the severity of symptoms shown, intensity of services needed, and/or the medical risk in this patient being treated as an outpatient. - . Bed Request Type: Regular Admitting Physician: Rafat Kumar Patient Diagnosis: Acute pyelonephritis, Intractable abdominal pain, Ovarian cyst
[2017-09-23 23:49] LABS: HCG,QUALITATIVE URINE NEGATIVE (NEGATIVE)
[2017-09-23 23:52] LABS: SQUAMOUS EPITHIAL 10 /hpf (0-5); URINE BACTERIA RARE (<OCC); URINE BILIRUBIN NEGATIVE (NEGATIVE); URINE BLOOD NEGATIVE (NEGATIVE); URINE CLARITY Hazy (Clear); URINE COLOR Straw (YELLOW); URINE GLUCOSE (UA) NORMAL (Normal); URINE LEUKOCYTE ESTERASE NEG Leu/uL (Negative); URINE PROTEIN NEGATIVE (NEGATIVE); URINE UROBILINOGEN NORMAL mg/dL (0.2-1.0)
[2017-09-24 00:15] LABS: EOS # 0.1 K/uL (0.0-0.7); LYMPH # 0.6 K/uL (1.0-4.3); MONO # 0.4 K/uL (0.0-0.8)
[2017-09-24 00:35] LABS: ALBUMIN 3.8 g/dL (3.5-5.0); ALT/SGPT 66 U/L (9-52); AST/SGOT 47 U/L (14-36); BASO % 0.3 % (0.0-2.0); BLOOD UREA NITROGEN 8 mg/dL (7-17); CALCIUM 9.4 mg/dl (8.6-10.4); EOS % 0.8 % (0.0-4.0); GFR AFRICAN-AMERICAN > 60; GFR NON-AFRICAN AMERICAN > 60; HEMOGLOBIN 11.7 g/dL (11.0-16.0); LIPASE 122 U/L (23-300); LYMPH % 4.6 % (20.0-40.0); MEAN CELL VOLUME 80.5 fL (81.0-99.0); MEAN CORPUSCULAR HEMOGLOBIN 26.5 pg (27.0-31.0); MEAN PLATELET VOLUME 8.6 fL (7.2-11.7); MONO % 3.4 % (0.0-10.0); NEUT # 11.2 K/uL (1.8-7.0); NEUT % 90.9 % (50.0-75.0); NRBC % 0.1 % (0.0-2.0); PLATELET COUNT 404 K/uL (130-400); RBC 4.41 Mil/uL (3.80-5.20); RED CELL DISTRIBUTION WIDTH 13.8 % (11.5-14.5); WHITE BLOOD COUNT 12.3 K/uL (4.8-10.8)
[2017-09-24 01:18] LABS: ANISOCYTOSIS SLIGHT; BANDS 1 % (0-2); EOSINOPHIL 1 % (0-4); LYMPHOCYTE 5 % (20-40); MONOCYTE 4 % (0-10); NEUTROPHIL 89 % (50-75); PLATELET ESTIMATE NORMAL (NORMAL); TOTAL CELLS COUNTED 100
[2017-09-24] MEDS ORDERED: cefTRIAXone IV 1 gm in Dextros 50 ML IVPB ONE ×2 (04:02→04:07)
[2017-09-24] MEDS ORDERED: Potassium Chloride 20 mEq ER Tab PO STA (05:56)
[2017-09-24 06:38] VITALS: RESP 20
--- NOTE | 2017-09-24 09:18 | CP.PCM.PN ---
Subjective - Date & Time of Evaluation Date of Evaluation: 09/24/17 Time of Evaluation: 09:18 - Subjective Subjective: PGY-[address] Kumar's Service Patient seen and examined at bedside. Per nursing no acute events occurred overnight. Patient does state having multiple episodes of non-bloody, non- bilious emesis overnight. Patient reports some bilateral flank pain as well today. Patient denies any chest pain, shortness of breath, dizziness, syncopal episodes, or any other complaints. Objective - Vital Signs/Intake and Output Vital Signs (last 24 hours): Temp Pulse Resp BP Pulse Ox 98.1 F 51 L 20 132/92 H 98 09/24/17 08:00 09/24/17 08:00 09/24/17 08:00 09/24/17 08:00 09/24/17 08:00 - Labs Labs: 09/23/17 23:59 09/23/17 23:59 - Head Exam Head Exam: ATRAUMATIC, NORMAL INSPECTION, NORMOCEPHALIC - Eye Exam Eye Exam: EOMI, Normal appearance, PERRL Pupil Exam: NORMAL ACCOMODATION, PERRL - ENT Exam ENT Exam: Mucous Membranes Moist, Normal Oropharynx - Respiratory Exam Respiratory Exam: Clear to Ausculation Bilateral, NORMAL BREATHING PATTERN - Cardiovascular Exam Cardiovascular Exam: REGULAR RHYTHM, +S1, +S2 - GI/Abdominal Exam GI & Abdominal Exam: Soft, Normal Bowel Sounds - Neurological Exam Neurological Exam: Alert, Awake, CN II-XII Intact, Oriented x3 - Psychiatric Exam Psychiatric exam: Normal Affect, Normal Mood - Skin Skin Exam: Dry, Intact, Normal Color Assessment and Plan - Assessment and Plan (Free Text) Plan: 1. Intractable nausea and vomiting -Given dose of Zosyn in the E.D. -IV fluids -Tylenol for Temperature >100.4 -Urine culture. Will f/u with results. PPX -Protonix Case discussed with Dr. Kumar. Mario Alfred, PGY-2
--- NOTE | 2017-09-24 10:43 | US ---
Date of service: 09/24/2017 HISTORY: pelvic pain COMPARISON: None available. TECHNIQUE: Transabdominal and transvaginal FINDINGS: UTERUS: Measures 8.9 x 5.2 x 6.5 cm. Posterior subserosal uterine body fibroid 1.4 x 1.8 x 2.1 cm. No other mass identified. ENDOMETRIUM: Measures 9 mm in diameter. Unremarkable. CERVIX: No cervical abnormality identified. RIGHT OVARY: Measures 2.2 x 1.7 x 1.9 cm. No solid mass. Normal flow. LEFT OVARY: Measures 2.9 x 2.2 x 2.9 cm. No solid mass. Normal flow. Minimally complicated cyst, 1.5 x 1.7 x 1.9 cm with thin septation. FREE FLUID: No significant free fluid noted. OTHER FINDINGS: None. IMPRESSION: Solitary 2.1 cm posterior subserosal uterine body fibroid. Minimally complicated left ovarian cyst, 1.9 cm. Otherwise unremarkable. The preliminary findings for this examination were reported by [facility] at 3:32 a.m. on 09/24/2017. There is concurrence of this report with the preliminary findings.
[2017-09-24] MEDS: Sodium Chloride 0.9% 1,000 ML IV SCH ×2 (12:08→20:45)
[2017-09-24 14:49] LABS: HEPATITIS B SURFACE AG Negative (NEGATIVE)
[2017-09-24 14:54] LABS: HEPATITIS A IGM NEGATIVE (NEGATIVE); HEPATITIS B CORE AB NEGATIVE (NEGATIVE)
[2017-09-24 15:06] LABS: HEPATITIS C ANTIBODY NEGATIVE (NEGATIVE)
[2017-09-24 15:55] VITALS: O2SAT 100
[2017-09-25] MEDS: Sodium Chloride 0.9% 1,000 ML IV SCH ×2 (04:55→12:08)
[2017-09-25 06:48] LABS: BASO % 0.5 % (0.0-2.0); EOS # 0.3 K/uL (0.0-0.7); EOS % 4.8 % (0.0-4.0); HEMOGLOBIN 10.5 g/dL (11.0-16.0); LYMPH % 42.4 % (20.0-40.0); MEAN CELL VOLUME 81.2 fL (81.0-99.0); MEAN CORPUSCULAR HEMOGLOBIN 27.5 pg (27.0-31.0); MEAN CORPUSCULAR HGB CONC 33.9 g/dL (33.0-37.0); MEAN PLATELET VOLUME 8.3 fL (7.2-11.7); MONO # 0.7 K/uL (0.0-0.8); MONO % 9.5 % (0.0-10.0); NEUT % 42.8 % (50.0-75.0); NRBC % 0.1 % (0.0-2.0); RBC 3.8 Mil/uL (3.80-5.20); RED CELL DISTRIBUTION WIDTH 14.3 % (11.5-14.5); WHITE BLOOD COUNT 7.1 K/uL (4.8-10.8)
--- NOTE | 2017-09-25 07:22 | CP.PCM.PN ---
Subjective - Date & Time of Evaluation Date of Evaluation: 09/25/17 Time of Evaluation: 07:22 - Subjective Subjective: PGY-[address] Kumar's Service Patient seen and examined at bedside. Per nursing no acute events occurred overnight. Patient does state having multiple episodes of non-bloody, non- bilious emesis overnight. Patient reports some bilateral flank pain as well today. Patient denies any chest pain, shortness of breath, dizziness, syncopal episodes, or any other complaints. Objective - Vital Signs/Intake and Output Vital Signs (last 24 hours): Temp Pulse Resp BP Pulse Ox 97.8 F 56 L 20 126/78 100 09/24/17 23:58 09/24/17 23:58 09/24/17 23:58 09/24/17 23:58 09/24/17 23:58 Intake and Output: 09/25/17 09/25/17 06:59 18:59 Intake Total 1500 Balance 1500 - Medications Medications: Current Medications Acetaminophen (Tylenol 325mg Tab) 650 mg PO Q6 PRN PRN Reason: Fever >100.4 F Acetaminophen (Tylenol 325mg Tab) 650 mg PO Q6 PRN PRN Reason: pain Last Admin: 09/24/17 18:12 Dose: 650 mg Sodium Chloride (Sodium Chloride 0.9%) 1,000 mls @ 125 mls/hr IV .Q8H [facility] Last Admin: 09/25/17 04:55 Dose: 125 mls/hr Ondansetron HCl (Zofran Inj) 4 mg IVP Q6 PRN PRN Reason: Nausea/Vomiting Pantoprazole Sodium (Protonix Inj) 40 mg IVP DAILY [facility] - Labs Labs: 09/25/17 06:38 09/23/17 23:59 - Head Exam Head Exam: ATRAUMATIC, NORMAL INSPECTION, NORMOCEPHALIC - Eye Exam Eye Exam: EOMI, Normal appearance Pupil Exam: NORMAL ACCOMODATION, PERRL - ENT Exam ENT Exam: Mucous Membranes Moist, Normal Oropharynx - Respiratory Exam Respiratory Exam: Clear to Ausculation Bilateral, NORMAL BREATHING PATTERN - Cardiovascular Exam Cardiovascular Exam: REGULAR RHYTHM, +S1, +S2 - GI/Abdominal Exam GI & Abdominal Exam: Soft, Normal Bowel Sounds - Back Exam Back Exam: NORMAL INSPECTION. absent: CVA tenderness (L), CVA tenderness (R), paraspinal tenderness - Neurological Exam Neurological Exam: Alert, Awake, CN II-XII Intact, Normal Gait, Oriented x3 - Psychiatric Exam Psychiatric exam: Normal Affect, Normal Mood - Skin Skin Exam: Dry, Intact Assessment and Plan - Assessment and Plan (Free Text) Plan: 1. Intractable nausea/vomiting 2/2 to pyelnephritis Last admission Ab/pelvis CT scan: Striated right nephrogram concerning for pyelonephritis. Multifocal scattered areas of peripheral low attenuation. Post treatment interval followup would be helpful to ensure resolution and exclude underlying lesions. Clinical correlation. -Given dose of Zosyn in the E.D. -IV fluids -Tylenol for Temperature >100.4 -Urine culture negative -WBC today 7.1 PPX -Protonix Case discussed with Dr. Kumar. Mario Alfred-PGY2 Disposition: Patient expected to be discharged today. Discharge Instructions: 1.Follow up with PMD Dr. Kumar within 5 to 7 days upon discharge. 2. Follow up with Gynecology within 5 to 7 days upon discharge for possible for further management (rec's per GI team). 3. Return to hospital for any new or worsening symptoms.
[2017-09-25 08:01] VITALS: BP 115/72; PULSE 55; TEMP 98
[2017-09-25 08:07] LABS: ALBUMIN 3.2 g/dL (3.5-5.0); ALT/SGPT 85 U/L (9-52); AST/SGOT 80 U/L (14-36); BLOOD UREA NITROGEN 6 mg/dL (7-17); CALCIUM 8.6 mg/dl (8.6-10.4); GFR AFRICAN-AMERICAN > 60; GFR NON-AFRICAN AMERICAN 59
[2017-09-25] MEDS ORDERED: Potassium Chloride 20 mEq ER Tab PO ONE (10:02)
[2017-09-27] MEDS ORDERED: Pneumococcal 23-Valent Vaccine IM ONE (10:00)
== END 2017-09-25 14:09 | disposition home or self-care (01) | DRG 321 ==
LOC: C.ER 23:09 → C.9E 09-24 03:55 → C.3T 09-24 05:46
PROVIDERS: ADMIT Internal Medicine Pulmonary Disease; ATTEND Internal Medicine Pulmonary Disease
DX: N10 Acute pyelonephritis (principal); N83.209 Unspecified ovarian cyst, unspecified side; Z87.891 Personal history of nicotine dependence

== ENCOUNTER 2018-06-24 00:28 | Emergency (ER) | payer OTHER, MEDICAID | END 2018-06-24 03:01 | disposition home or self-care (01) | LOC: C.ER 00:28 ==

== ENCOUNTER 2018-06-26 16:54 | Emergency (ER) | payer OTHER ==
[2018-06-26 16:55] VITALS: BMI 34.0
[2018-06-26 17:15] VITALS: BP 110/72; PULSE 80; RESP 18; TEMP 98.9; O2SAT 97
--- NOTE | 2018-06-26 18:09 | RAD ---
Date of service: 06/26/2018 PROCEDURE: Right Ankle Radiographs. HISTORY: s/p fall - r/o fx COMPARISON: None TECHNIQUE: 3 views obtained. FINDINGS: BONES: Bone alignment and mineralization are normal. There is no acute displaced fracture or bone destruction. JOINTS: Normal. No osteoarthritis. Ankle mortise maintained. Talar dome intact SOFT TISSUES: Normal. OTHER FINDINGS: None. IMPRESSION: No acute fracture or dislocation.
--- NOTE | 2018-06-26 18:10 | RAD ---
Date of service: 06/26/2018 PROCEDURE: Right Foot Radiographs. HISTORY: s/p fall - r/o fx COMPARISON: None. TECHNIQUE: 3 views obtained. FINDINGS: BONES: Bone alignment and mineralization are normal. There is no acute displaced fracture or bone destruction. JOINTS: Normal. SOFT TISSUES: Normal. OTHER FINDINGS: None. IMPRESSION: No acute fracture or dislocation.
--- NOTE | 2018-06-26 19:05 | C.PDOC ---
History Of Present Illness 32 y/o female comes in to ED complaining of right ankle pain. States that she was walking across the street when she stepped in a pothole and twisted her right ankle. Patient denies falling to the ground. Denies any other injuries. Patient is using crutches for a left ankle sprain. Time Seen by Provider: 06/26/18 17:48 Chief Complaint (Nursing): Lower Extremity Problem/Injury History Per: Patient History/Exam Limitations: no limitations Onset/Duration Of Symptoms: Hrs Current Symptoms Are (Timing): Still Present Past Medical History Reviewed: Historical Data, Nursing Documentation, Vital Signs Vital Signs: Last Vital Signs Temp 98.9 F 06/26/18 17:10 Pulse 80 06/26/18 17:10 Resp 18 06/26/18 17:10 BP 110/72 06/26/18 17:10 Pulse Ox 97 06/26/18 17:10 - Medical History PMH: Denies: Chronic Kidney Disease Surgical History: - [facility] (09/18/17) Family History: States: No Known Family Hx - Social History Hx Tobacco Use: Yes Hx Alcohol Use: Yes (3 glasses of wine mostly daily) Hx Substance Use: No - Immunization History Hx Tetanus Toxoid Vaccination: No Hx Influenza Vaccination: No Hx Pneumococcal Vaccination: No Review Of Systems Except As Marked, All Systems Reviewed And Found Negative. Musculoskeletal: Positive for: Other (Right ankle pain). Negative for: Neck Pain Neurological: Negative for: Weakness, Numbness Physical Exam - Physical Exam Appears: Non-toxic, No Acute Distress Skin: Warm, Dry Head: Atraumatic, Normacephalic Eye(s): bilateral: Normal Inspection Oral Mucosa: Moist Neck: Supple Extremity: Tenderness (tenderness and swelling to the lateral aspect of right ankle), Capillary Refill (less than 2 seconds), No Deformity, Other (left ankle wrapped in marcel wrap) Extremity: Bilateral: Normal Color And Temperature Pulses: Left Dorsalis Pedis: Normal, Right Dorsalis Pedis: Normal Neurological/Psych: Oriented x3, Normal Speech, Normal Motor, Normal Sensation ED Course And Treatment O2 Sat by Pulse Oximetry: 97 (RA) Pulse Ox Interpretation: Normal - Other Rad R foot XR X-Ray: Read By Radiologist Interpretation: FINDINGS: BONES: Bone alignment and mineralization are normal. There is no acute displaced fracture or bone destruction. JOINTS: Normal. SOFT TISSUES: Normal. OTHER FINDINGS: None. IMPRESSION: No acute fracture or dislocation. R ankle XR X-Ray: Read By Radiologist Interpretation: FINDINGS: BONES: Bone alignment and mineralization are normal. There is no acute displaced fracture or bone destruction. JOINTS: Normal. No osteoarthritis. Ankle mortise maintained. Talar dome intact. SOFT TISSUES: Normal. OTHER FINDINGS: None. IMPRESSION: No acute fracture or dislocation. Medical Decision Making Medical Decision Making: Plan: --Ibuprofen PO --Right ankle XR --Right foot XR Disposition - [facility] - Disposition: HOME/ ROUTINE Disposition Time: 18:00 Condition: GOOD Additional Instructions: KIRSTY MEDELLIN, thank you for letting us take care of you today. The emergency medical care you received today was directed at your acute symptoms. If you were prescribed any medication, please fill it and take as directed. It may take several days for your symptoms to resolve. Return to the Emergency Department if your symptoms worsen, do not improve, or if you have any other problems. Please contact your doctor or call one of the physicians/clinics you have been referred to that are listed on the Patient Visit Information form that is included in your discharge packet. Bring any paperwork you were given at disch arge with you along with any medications you are taking to your follow up visit. Our treatment cannot replace ongoing medical care by a primary care provider outside of the emergency department. Thank you for allowing the [facility] team to be part of your care today. Follow up with your primary doctor in 2-3 days for re-evaluation and further management. Prescriptions: Ibuprofen [Motrin] 600 mg PO Q6 PRN #20 tab PRN Reason: Pain, Moderate (4-7) Instructions: Ankle Sprain (DC), How to Use Crutches Forms: [employer] (Monegasque) - Clinical Impression Clinical Impression: Ankle sprain - Scribe Statement The provider has reviewed the documentation as recorded by the Rosanaibernesto Griffith Provider Attestation: All medical record entries made by the Scribe were at my direction and personally dictated by me. I have reviewed the chart and agree that the record accurately reflects my personal performance of the history, physical exam, medical decision making, and the department course for this patient. I have also personally directed, reviewed, and agree with the discharge instructions and disposition.
== END 2018-06-26 18:20 | disposition home or self-care (01) ==
LOC: C.ER 16:54
DX: S93.401A Sprain of unspecified ligament of right ankle, initial encounter (principal); X50.9XXA Other and unspecified overexertion or strenuous movements or postures, initial encounter; Y93.01 Activity, walking, marching and hiking; Y92.410 Unspecified street and highway as the place of occurrence of the external cause